=== PATIENT | male | born 1990 | race Caucasian/White ===

== ENCOUNTER 2017-02-24 22:43 | Emergency (ER) | payer SELFPAY ==
[2017-02-24] MEDS ORDERED: predniSONE 20 MG TAB ONE (23:24)
[2017-02-24] MEDS ORDERED: Albuterol Sulfate 2.5 mg/0.5 ml Neb ONE (23:25)
--- NOTE | 2017-02-24 23:26 | RAD ---
RADIOGRAPH CHEST 2 VIEWS: HISTORY: 26-year-old male with nonproductive cough. FINDINGS: There is no air space density, pulmonary edema, pleural effusion, pneumothorax, or cardiomegaly. IMPRESSION: No acute cardiopulmonary findings. carolann POS: [facility]
== END 2017-02-25 00:14 | disposition home or self-care (01) ==
LOC: SCSER 22:43
DX: J40 Bronchitis, not specified as acute or chronic (principal); F41.9 Anxiety disorder, unspecified; F17.210 Nicotine dependence, cigarettes, uncomplicated; Z87.01 Personal history of pneumonia (recurrent)
CPT/HCPCS: 71020; 94640; 99406; J7506; J7611; J7620